=== PATIENT | male | born 1970 | race Caucasian/White ===

== ENCOUNTER 2019-07-24 02:11 | Emergency (ER) | payer OTHER ==
[~2019-07-24] VITALS: Ht 172.7 cm; Wt 122.0 kg
[2019-07-24 02:19] VITALS: Ht 172.7 cm; Wt 122.0 kg
[2019-07-24 03:07] LABS: CALCIUM 8.7 mg/dL (8.5-10.1); CARBON DIOXIDE 21.8 mmol/L (21-32); CHLORIDE SERUM 98 mmol/L (98-107); CREATININE SERUM 1.2 mg/dL (0.7-1.3); GFR1 > 60 mL/min; GLUCOSE SERUM 123 mg/dL (74-106); POTASSIUM SERUM 3.9 mmol/L (3.5-5.1); SODIUM SERUM 133 mmol/L (136-145)
[2019-07-24 03:08] LABS: BASOPHIL % 0.3 % (0-2); PLATELET COUNT 253 x10^3mcL (130-400); RED CELL DISTRIBUTION WIDTH 13.4 % (11.5-14.5)
[2019-07-24 03:12] LABS: ALBUMIN 3.7 g/dL (3.4-5.0); ALKALINE PHOSPHATASE 72 U/L (46-116); ALT/SGPT 54 U/L (16-63); AST/SGOT 33 U/L (15-37); BILIRUBIN TOTAL 0.79 mg/dL (0.20-1.00); TOTAL PROTEIN, SERUM 7.7 g/dL (6.4-8.2)
[2019-07-24 05:29] VITALS: BP 123/56
== END 2019-07-24 05:29 | disposition home or self-care (01) ==
LOC: ED 02:11
PROVIDERS: Emergency Medicine
DX: R07.89 Other chest pain (principal); B34.9 Viral infection, unspecified; I45.10 Unspecified right bundle-branch block
CPT/HCPCS: 87804; J1885; J7030; Q0092